=== PATIENT | female | born 1990 | race Caucasian/White ===

== ENCOUNTER 2023-08-12 02:24 | Emergency (ER) | payer OTHER ==
[2023-08-12] MEDS ORDERED: Sodium Chloride 0.9% 10 ML Syringe FLUSH PRN (02:47)
[2023-08-12] MEDS ORDERED: Ondansetron 4 MG/2 ML SDV IVPUSH ONE (02:50)
[2023-08-12] MEDS ORDERED: fentaNYL 100 MCG/2 ML SDV IVPUSH ONE (02:50)
[2023-08-12 02:56] LABS: BASOPHILS ABSOLUTE AUTO 0.05 K/uL (0.00-0.10); BASOPHILS PERCENT AUTO 0.5 % (0.1-1.3); EOSINOPHILS ABSOLUTE AUTO 0.11 K/uL (0.00-0.40); EOSINOPHILS PERCENT AUTO 1.1 % (0.0-5.4); HEMATOCRIT 35.9 % (34.3-46.0); IMMATURE GRAN ABSOLUTE AUTO 0.03 K/uL (0.00-0.23); IMMATURE GRAN PERCENT AUTO 0.3 % (0.0-0.7); LYMPHOCYTES ABSOLUTE AUTO 2.55 K/uL (0.8-3.3); LYMPHOCYTES PERCENT AUTO 24.4 % (11.4-47.7); MEAN CORPUSCULAR HEMOGLOBIN 31.3 pg (31.6-35.5); MEAN CORPUSCULAR HGB CONC 33.4 g/dL (31.6-35.5); MEAN CORPUSCULAR VOLUME 93.5 fL (81.4-99.0); MONOCYTES PERCENT AUTO 8.6 % (3.3-12.6); NEUTROPHILS ABSOLUTE AUTO 6.79 K/uL (1.0-7.6); NEUTROPHILS PERCENT AUTO 65.1 % (40.0-78.1); PLATELET COUNT,PLT 277 K/uL (130-375); RED BLOOD CELL COUNT 3.84 M/uL (3.77-5.24); WHITE BLOOD CELL COUNT,WBC 10.4 K/uL (3.2-11.0)
[2023-08-12] MEDS ORDERED: Dextrose 5%-0.45% NaCl 500 ML IV SCH (03:00)
[2023-08-12 03:16] LABS: A/G RATIO 1.1 (1.2-2.2); ALANINE AMINOTRANSFERASE,ALT 17 U/L (12-78); ALBUMIN 3.7 g/dL (3.4-5.0); ALKALINE PHOSPHATASE 94 U/L (46-116); ASPARTATE AMNIOTRANSFERASE,AST 12 U/L (15-37); BILIRUBIN TOTAL 0.5 mg/dL (0.2-1.0); BLOOD UREA NITROGEN,BUN 14 mg/dL (7-18); CALCIUM 9.2 mg/dL (8.5-10.1); CARBON DIOXIDE,CO2 25 mmol/L (21-32); CHLORIDE,CL 100 mmol/L (100-108); CREATININE 0.9 mg/dL (0.6-1.0); EST CRCL DRUG DOSING (CG) 83.23 mL/min; ESTIMATED GFR 87 mL/min (>60); GLUCOSE RANDOM 155 mg/dL (74-106); POTASSIUM,K 3.4 mmol/L (3.6-5.2); PROTEIN TOTAL,TP 7.2 g/dL (6.4-8.2); SODIUM,NA 136 mmol/L (140-148)
[2023-08-12] MEDS ORDERED: Iopamidol 612 MG/ML 100 ML Bottle IV STA (03:17)
[2023-08-12] MEDS ORDERED: Sodium Chloride 0.9% 50 ML IV STA (03:17)
[2023-08-12 03:25] LABS: ANION GAP 14.4 mmol/L (5.0-14.0)
[2023-08-12] MEDS ORDERED: Alum Hydrox/Mag Hydrox/Simeth 15 ML, Lidocaine 2% 15 ML PO ONE ×2 (04:01)
[2023-08-12 04:56] LABS: BILIRUBIN,URINE NEGATIVE (NEGATIVE); COLOR,URINE YELLOW (YELLOW); GLUCOSE,URINE NEGATIVE (NEGATIVE); KETONES,URINE NEGATIVE (NEGATIVE); LEUKOCYTE ESTERASE,URINE NEGATIVE (NEGATIVE); NITRITE,URINE NEGATIVE (NEGATIVE); OCCULT BLOOD,URINE NEGATIVE (NEGATIVE); PROTEIN,URINE NEGATIVE (NEGATIVE); UROBILINOGEN,URINE 0.2 EU/dL (0.2-1.0)
[2023-08-12 05:01] LABS: AMORPHOUS SEDIMENT,URINE NOT SEEN; APPEARANCE,URINE SLIGHTLY CLOUDY (CLEAR); BACTERIA,URINE MANY; EPITHELIAL CELLS,URINE RARE; MUCUS,URINE NOT SEEN; RBC,URINE 0-5 (0-5); WBC,URINE 0-5 (0-5)
== END 2023-08-12 04:48 | disposition home or self-care (01) ==
LOC: JP.ED 02:24
DX: K21.9 Gastro-esophageal reflux disease without esophagitis (principal); Z86.16 Personal history of COVID-19
CPT/HCPCS: 36415; 74177; 80053; 81001; 83605; 83690; 84703; 85025; 96374; 96375; 99284; A9270; J2405; J3010; J3490; Q9967

== ENCOUNTER 2023-11-25 02:58 | Emergency (ER) | payer OTHER, MEDICAID ==
[2023-11-25] MEDS: Alum Hydrox/Mag Hydrox/Simeth 15 ML, Lidocaine 2% 15 ML PO ONE (03:38)
[2023-11-25 03:42] LABS: BASOPHILS ABSOLUTE AUTO 0.03 K/uL (0.00-0.10); BASOPHILS PERCENT AUTO 0.3 % (0.1-1.3); EOSINOPHILS ABSOLUTE AUTO 0.18 K/uL (0.00-0.40); EOSINOPHILS PERCENT AUTO 1.8 % (0.0-5.4); HEMATOCRIT 35.5 % (34.3-46.0); HEMOGLOBIN 11.9 g/dL (11.2-15.5); IMMATURE GRAN PERCENT AUTO 0.2 % (0.0-0.7); LYMPHOCYTES ABSOLUTE AUTO 2.22 K/uL (0.8-3.3); LYMPHOCYTES PERCENT AUTO 22.7 % (11.4-47.7); MEAN CORPUSCULAR HEMOGLOBIN 31.5 pg (31.6-35.5); MEAN CORPUSCULAR HGB CONC 33.5 g/dL (31.6-35.5); MEAN CORPUSCULAR VOLUME 93.9 fL (81.4-99.0); MONOCYTES ABSOLUTE AUTO 0.66 K/uL (0.20-0.90); MONOCYTES PERCENT AUTO 6.7 % (3.3-12.6); NEUTROPHILS ABSOLUTE AUTO 6.69 K/uL (1.0-7.6); NEUTROPHILS PERCENT AUTO 68.3 % (40.0-78.1); PLATELET COUNT,PLT 271 K/uL (130-375); RED BLOOD CELL COUNT 3.78 M/uL (3.77-5.24); WHITE BLOOD CELL COUNT,WBC 9.8 K/uL (3.2-11.0)
[2023-11-25 03:43] LABS: IMMATURE GRAN ABSOLUTE AUTO 0.02 K/uL (0.00-0.23)
[2023-11-25 03:59] LABS: ALANINE AMINOTRANSFERASE,ALT 16 U/L (12-78); ALBUMIN 3.6 g/dL (3.4-5.0); ALKALINE PHOSPHATASE 71 U/L (46-116); ANION GAP 14.5 mmol/L (5.0-14.0); ASPARTATE AMNIOTRANSFERASE,AST 12 U/L (15-37); BILIRUBIN TOTAL 0.5 mg/dL (0.2-1.0); BLOOD UREA NITROGEN,BUN 16 mg/dL (7-18); CALCIUM 8.8 mg/dL (8.5-10.1); CARBON DIOXIDE,CO2 27 mmol/L (21-32); CHLORIDE,CL 99 mmol/L (100-108); CREATININE 0.8 mg/dL (0.6-1.0); EST CRCL DRUG DOSING (CG) 93.63 mL/min; ESTIMATED GFR 100 mL/min (>60); GLUCOSE RANDOM 126 mg/dL (74-106); POTASSIUM,K 3.5 mmol/L (3.6-5.2); PROTEIN TOTAL,TP 7.2 g/dL (6.4-8.2); SODIUM,NA 137 mmol/L (140-148)
== END 2023-11-25 04:19 | disposition home or self-care (01) ==
LOC: JP.ED 02:58
DX: K29.00 Acute gastritis without bleeding (principal); Z86.16 Personal history of COVID-19
CPT/HCPCS: 36415; 80053; 83690; 85025; 86140; 99284; A9270

== ENCOUNTER 2023-12-15 03:07 | Emergency (ER) | payer MEDICAID, OTHER ==
[2023-12-15] MEDS: Alum Hydrox/Mag Hydrox/Simeth 15 ML, Lidocaine 2% 15 ML PO ONE (03:39)
[2023-12-15] MEDS: Pantoprazole 40 MG Tab.CR PO ONE (03:59)
[2023-12-15 04:05] LABS: BASOPHILS ABSOLUTE AUTO 0.04 K/uL (0.00-0.10); BASOPHILS PERCENT AUTO 0.3 % (0.1-1.3); EOSINOPHILS ABSOLUTE AUTO 0.06 K/uL (0.00-0.40); EOSINOPHILS PERCENT AUTO 0.5 % (0.0-5.4); HEMATOCRIT 36.4 % (34.3-46.0); HEMOGLOBIN 12.4 g/dL (11.2-15.5); IMMATURE GRAN ABSOLUTE AUTO 0.03 K/uL (0.00-0.23); IMMATURE GRAN PERCENT AUTO 0.3 % (0.0-0.7); LYMPHOCYTES ABSOLUTE AUTO 1.99 K/uL (0.8-3.3); LYMPHOCYTES PERCENT AUTO 16.6 % (11.4-47.7); MEAN CORPUSCULAR HEMOGLOBIN 31.5 pg (31.6-35.5); MEAN CORPUSCULAR HGB CONC 34.1 g/dL (31.6-35.5); MEAN CORPUSCULAR VOLUME 92.4 fL (81.4-99.0); MONOCYTES ABSOLUTE AUTO 0.83 K/uL (0.20-0.90); MONOCYTES PERCENT AUTO 6.9 % (3.3-12.6); NEUTROPHILS ABSOLUTE AUTO 9.01 K/uL (1.0-7.6); NEUTROPHILS PERCENT AUTO 75.4 % (40.0-78.1); PLATELET COUNT,PLT 277 K/uL (130-375); RED BLOOD CELL COUNT 3.94 M/uL (3.77-5.24)
[2023-12-15 04:22] LABS: ALANINE AMINOTRANSFERASE,ALT 16 U/L (12-78); ALKALINE PHOSPHATASE 75 U/L (46-116); ASPARTATE AMNIOTRANSFERASE,AST 11 U/L (15-37); BILIRUBIN TOTAL 0.7 mg/dL (0.2-1.0); BLOOD UREA NITROGEN,BUN 19 mg/dL (7-18); CALCIUM 9.5 mg/dL (8.5-10.1); CARBON DIOXIDE,CO2 26 mmol/L (21-32); CHLORIDE,CL 100 mmol/L (100-108); CREATININE 0.8 mg/dL (0.6-1.0); EST CRCL DRUG DOSING (CG) 93.63 mL/min; ESTIMATED GFR 100 mL/min (>60); GLUCOSE RANDOM 128 mg/dL (74-106); POTASSIUM,K 3.7 mmol/L (3.6-5.2); SODIUM,NA 136 mmol/L (140-148)
[2023-12-15 04:23] LABS: ANION GAP 13.7 mmol/L (5.0-14.0)
== END 2023-12-15 04:59 | disposition home or self-care (01) ==
LOC: JP.ED 03:07
DX: K29.00 Acute gastritis without bleeding (principal); Z86.16 Personal history of COVID-19
CPT/HCPCS: 36415; 80053; 83690; 85025; 99284; A9270

== ENCOUNTER 2024-04-03 22:28 | Emergency (ER) | payer OTHER, MEDICAID ==
[2024-04-04] MEDS ORDERED: Naloxone 0.4 MG/ML SDV IVPUSH PRN (00:15)
[2024-04-04] MEDS: Sodium Chloride 0.9% 1,000 ML IV SCH (00:27)
[2024-04-04 00:28] LABS: BASOPHILS ABSOLUTE AUTO 0.04 K/uL (0.00-0.10); BASOPHILS PERCENT AUTO 0.4 % (0.1-1.3); EOSINOPHILS PERCENT AUTO 0.1 % (0.0-5.4); HEMOGLOBIN 12.3 g/dL (11.2-15.5); IMMATURE GRAN ABSOLUTE AUTO 0.16 K/uL (0.00-0.23); IMMATURE GRAN PERCENT AUTO 1.5 % (0.0-0.7); LYMPHOCYTES ABSOLUTE AUTO 1.22 K/uL (0.8-3.3); LYMPHOCYTES PERCENT AUTO 11.6 % (11.4-47.7); MEAN CORPUSCULAR HEMOGLOBIN 32.5 pg (31.6-35.5); MEAN CORPUSCULAR HGB CONC 35.1 g/dL (31.6-35.5); MEAN CORPUSCULAR VOLUME 92.3 fL (81.4-99.0); MONOCYTES ABSOLUTE AUTO 0.48 K/uL (0.20-0.90); MONOCYTES PERCENT AUTO 4.6 % (3.3-12.6); NEUTROPHILS ABSOLUTE AUTO 8.63 K/uL (1.0-7.6); NEUTROPHILS PERCENT AUTO 81.8 % (40.0-78.1); PLATELET COUNT,PLT 279 K/uL (130-375); RED BLOOD CELL COUNT 3.79 M/uL (3.77-5.24); WHITE BLOOD CELL COUNT,WBC 10.5 K/uL (3.2-11.0)
[2024-04-04] MEDS: Ondansetron 4 MG/2 ML SDV IVPUSH ONE (00:30)
[2024-04-04] MEDS: HYDROmorphone 0.5 MG/0.5 ML Syringe IVPUSH ONE (00:33)
[2024-04-04 00:40] LABS: EOSINOPHILS ABSOLUTE AUTO 0.01 K/uL (0.00-0.40)
[2024-04-04 00:42] LABS: A/G RATIO 1.2 (1.2-2.2); ALANINE AMINOTRANSFERASE,ALT 18 U/L (12-78); ALBUMIN 4.3 g/dL (3.4-5.0); ALKALINE PHOSPHATASE 71 U/L (46-116); ASPARTATE AMNIOTRANSFERASE,AST 13 U/L (15-37); BILIRUBIN TOTAL 0.5 mg/dL (0.2-1.0); BLOOD UREA NITROGEN,BUN 19 mg/dL (7-18); CALCIUM 9.8 mg/dL (8.5-10.1); CARBON DIOXIDE,CO2 25 mmol/L (21-32); CHLORIDE,CL 100 mmol/L (100-108); CREATININE 0.9 mg/dL (0.6-1.0); EST CRCL DRUG DOSING (CG) 76.77 mL/min; ESTIMATED GFR 87 mL/min (>60); GLUCOSE RANDOM 167 mg/dL (74-106); POTASSIUM,K 3.3 mmol/L (3.6-5.2); SODIUM,NA 136 mmol/L (140-148)
[2024-04-04 00:54] LABS: ANION GAP 14.3 mmol/L (5.0-14.0); C-REACTIVE PROTEIN < 0.50 mg/dL (<0.50)
[2024-04-04] MEDS: Alum Hydrox/Mag Hydrox/Simeth 15 ML, Lidocaine 2% 15 ML PO ONE (01:01)
[2024-04-04] MEDS: Iopamidol 612 MG/ML 100 ML Bottle IV STA (01:34)
[2024-04-04] MEDS: Sodium Chloride 0.9% 80 ML IV STA (01:34)
== END 2024-04-04 08:00 ==
LOC: JP.ED 22:28
DX: K81.0 Acute cholecystitis (principal); K21.9 Gastro-esophageal reflux disease without esophagitis; Z86.16 Personal history of COVID-19; Z79.899 Other long term (current) drug therapy
CPT/HCPCS: 36415; 74177; 76705; 80053; 83605; 83690; 84703; 85025; 86140; 96361; 96374; 96375; 99285; A9270; J1170; J2405; J3490; J7030; Q9967